=== PATIENT | female | born 1970 | race Caucasian/White ===

== ENCOUNTER 2019-06-13 13:10 | Outpatient (CLI) | payer BC ==
--- NOTE | 2019-06-13 14:43 | ULT ---
RENAL ULTRASOUND: HISTORY: History of left side urinary tract calculus with reportedly a left ureteral stent. FINDINGS: The right kidney is unremarkable. The right kidney measures 11.3 cm length. Images of the left kidney show moderate left hydronephrosis. There is free fluid around the renal pe lvis and in the perinephric space which may represent spontaneous rupture in the renal pelvis from th e hydronephrosis. The pigtail stent is not identified within the renal pelvis by ultrasound. Images of the bladder show a contracted bladder. An echogenic pigtail catheter is seen within the bl adder. IMPRESSION: 1. Moderate to severe left hydronephrosis. There is left peripelvic and perirenal fluid which may i ndicate spontaneous ruptured upper collecting structures. Echogenic stent is not identified in the l eft renal pelvis by ultrasound. 2. The bladder is contracted. There is echogenicity in the bladder lumen which does indicate a uret eral stent within the bladder. POS: [facility]
== END 2019-06-13 13:11 | disposition home or self-care (01) ==
LOC: BICULT 13:10
PROVIDERS: ATTEND Urology
DX: N13.2 Hydronephrosis with renal and ureteral calculous obstruction (principal)
CPT/HCPCS: 76770

== ENCOUNTER 2019-06-17 07:47 | Outpatient (CLI) | payer BC ==
[2019-06-17 11:15] LABS: Bilirubin Negative (Negative); Blood, Urine 1+ (Negative); Clarity Clear (Clear); Glucose, Urine (Dipstick) Normal (Negative); Leukocyte 500 Leu/uL (Negative); Nitrite Negative (Negative); Protein, Urine (Dipstick) 50 mg/dL (Neg-Trace); Squamous Epithelial 0-3 HPF (0-3); Urobilinogen Normal mg/dL (Less than 2); WBC/HPF Greater than 50 HPF (0-3)
[2019-06-17 11:22] LABS: INR-International Normal Ratio 1.2; PTT 34.1 SEC (22.9-36.1); Prothrombin Time 15.1 SEC (12.0-14.7)
[2019-06-17 11:34] LABS: Bacteria/HPF 1+ HPF (None Seen)
[2019-06-17 11:36] LABS: Anion Gap 13 mmol/L (10-20); BUN (Urea Nitrogen) 14 mg/dL (7.0-18.7); Calc. Creatinine Clearance 0 mL/min (70-130); Calcium 11.2 mg/dL (7.8-10.44); Carbon Dioxide 23 mmol/L (22-29); Chloride 103 mmol/L (98-107); Estimated GFR-MDRD 26; Glucose 88 mg/dL (70-105); Potassium 4.5 mmol/L (3.5-5.1); Sodium 134 mmol/L (136-145)
[2019-06-17 12:16] LABS: Hemoglobin 12.2 g/dL (12.0-16.0); Mean Corpuscular HGB CONC 32.4 g/dL (32.0-36.0); Mean Corpuscular Hemoglobin 28.5 pg (27.0-31.0); Mean Corpuscular Volume 87.7 fL (78.0-98.0); Mean Platelet Volume 6.1 fL (7.4-10.4); Platelet Count 1146 thou/uL (130-400); Red Blood Cell (RBC) Count 4.29 mill/uL (4.20-5.40)
[2019-06-17 12:17] LABS: MDiff Complete? YES
[2019-06-17 12:21] LABS: Band 2 % (5-11); Lymphocytes 15 % (21-51); Monocytes 4 % (0-10); Neutrophil 78 % (42-75); Rouleaux Formation SLIGHT = 1-5 cells (100X) (None Seen)
[2019-06-17 12:22] LABS: Platelet Morphology Comment Appears Increased; Polychromasia SLIGHT = 2-3 cells (100X) (0-2/hpf); Small Platelets SLIGHT
--- NOTE | 2019-06-17 15:22 | EKG ---
Test Reason : Blood Pressure : / mmHG Vent. Rate : 106 BPM Atrial Rate : 106 BPM P-R Int : 112 ms QRS Dur : 070 ms QT Int : 316 ms P-R-T Axes : 075 059 058 degrees QTc Int : 419 ms Sinus tachycardia Right atrial enlargement Borderline ECG No previous ECGs available Confirmed by MANDY PRICE ([id number]) on 06/17/2019 3:22:17 PM Referred By: LUCAS Confirmed By:MANDY PRICE
== END 2019-06-17 07:48 | disposition home or self-care (01) ==
LOC: LABBT 07:47
PROVIDERS: ATTEND Urology
DX: Z01.818 Encounter for other preprocedural examination (principal); N20.0 Calculus of kidney; N17.9 Acute kidney failure, unspecified; R65.20 Severe sepsis without septic shock
CPT/HCPCS: 80048; 81001; 85007; 85027; 85060; 85610; 85730; 87086; 93005; 93010

== ENCOUNTER 2019-06-19 07:58 | Day surgery (SDC) | payer BC ==
[2019-06-17 10:15] VITALS: BMI 26.1
[2019-06-19] MEDS ORDERED: Levofloxacin 500 mg/D5W 100 ml Premix Bag ONE (09:10)
[2019-06-19 09:19] LABS: #Basophils 0.1 thou/uL (0.0-0.2); #Eosinphils 0.2 thou/uL (0.0-0.7); #Lymphocytes 2.3 thou/uL (1.20-3.40); #Monocytes 0.8 thou/uL (0.11-0.59); #Neutrophils 12.5 thou/uL (1.40-6.50); %Basophils 0.9 % (0.0-1.0); %Eosinophils 1.1 % (0.0-10.0); %Lymphocytes 14.4 % (21.0-51.0); %Neutrophils 78.6 % (42.0-75.0); Hemoglobin 11.7 g/dL (12.0-16.0); Mean Corpuscular HGB CONC 32.2 g/dL (32.0-36.0); Mean Corpuscular Hemoglobin 27.9 pg (27.0-31.0); Mean Corpuscular Volume 86.9 fL (78.0-98.0); Mean Platelet Volume 6.3 fL (7.4-10.4); Platelet Count 988 thou/uL (130-400); RBC Distribution Width 13.1 % (11.5-14.5); Red Blood Cell (RBC) Count 4.19 mill/uL (4.20-5.40); White Blood Cell (WBC) Count 15.9 thou/uL (4.8-10.8)
[2019-06-19] MEDS ORDERED: B & O ONE (09:23)
[2019-06-19] MEDS ORDERED: Iothalamate Meglumine 60% 50 ML VIAL FS ONE (09:23)
[2019-06-19] MEDS ORDERED: Fentanyl 100 MCG/2 ML VIAL ONE (09:34)
[2019-06-19] MEDS ORDERED: Oxybutynin 5 MG TAB ONE (11:01)
[2019-06-19] MEDS ORDERED: Phenazopyridine HCl 97.5 MG TABLET ONE (11:01)
--- NOTE | 2019-06-19 11:03 | OP ---
DATE OF PROCEDURE: 06/19/2019 SERVICE: Urology. PREOPERATIVE DIAGNOSES: 1. Left ureteral stone. 2. Right nephrolithiasis. POSTOPERATIVE DIAGNOSIS: Right nephrolithiasis. PROCEDURES PERFORMED: 1. Left ureteroscopy. 2. Replacement of 6 x 24 double-J stent. 3. Left retrograde pyelogram. INDICATIONS FOR PROCEDURE: Ms. Adamson is a 48-year-old white female who initially sought at [facility] for urosepsis with a left ureteral stone. She underwent emergent ureteral stenting at that time. She has been treated with approximately 2 weeks of antibiotics since then and currently has almost just short of one week left. Her culture is currently negative and she has been stable. Her creatinine remains elevated and she did have some hydronephrosis noted on ultrasound. We elected to bring her to the operating room for diagnostic evaluation and removal of any remaining stone on the left side. Risks and benefits were discussed and she has agreed to proceed forward. DESCRIPTION OF PROCEDURE: After identification of armband and verification of consent, the patient was brought back to the operating room where she underwent general anesthesia with an LMA. She was then placed in dorsal lithotomy position and prepped and draped in the usual sterile fashion. After appropriate time-out, a lubricated 22-Ghanaian rigid cystoscope was introduced per urethra into the bladder. Attention was turned to the left ureteral orifice. There was a stent emanating. There was minimal amounts of erythema surrounding the stent. Flexible grasper was used to grasp the stent and bring it up to the level of the urethral meatus. A 0.035 Sensor wire was advanced through the ureteral stent up to the level of renal pelvis and the stent removed and discarded. A dual-lumen catheter was then advanced over the Sensor wire up to the level of the distal ureter and a retrograde pyelogram was performed through the second lumen. This demonstrated a normal caliber ureter with no filling defects other than some gas bubbles and a normal collecting system without hydronephrosis or dilation with sharp cupped calyces. There were some air bubbles there as well, but no obvious filling defects consistent with stone disease. The dual-lumen was removed and the Sensor wire was affixed to the drapes as a safety wire. A semi-rigid ureteroscope was then brought alongside the Sensor wire into the distal ureter. Ureteroscopy was performed and no stone was encountered. However, within the distal ureter, it was noticed that the wire was tunneled through the submucosa, likely the same direction the stent had gone. As such, we navigated past this portion with ureteroscope and all the way up to the proximal ureter, where no stone was encountered. The wire was removed and replaced through the ureteroscope to ensure that was within the lumen of the ureter. Pull-back ureteroscopy was employed and no additional stones were seen. On the retrograde, there were no other stones noted, and on preoperative CT from [facility], the patient has no other known stones on the left other than the nephrolithiasis, which is on the right side. Given that she is still being treated for sepsis, I did not feel it was the ideal time to perform bilateral ureteroscopy at this time and felt that a shorter procedure was best. We can always deal with the stones on the right side another date if she desires. Otherwise, we will probably just leave them alone if she wishes to try to pass them on her own. As such, the ureteroscope was withdrawn and removed. The ureteral stent was advanced over the Sensor wire,and using fluoroscopic guidance, put into positioning and then the wire removed. This resulted in a good curl in the kidney and a good curl in the bladder. The bladder was then emptied and the cystoscope removed. Final fluoroscopy demonstrated there was a minimal amount of contrast within the kidney. The patient was then taken out of positioning, awakened, taken to PACU for recovery in stable condition. COMPLICATIONS: None. ESTIMATED BLOOD LOSS: Minimal. RETAINED TUBES AND DRAINS: A 6 x 24 double-J stent on the left. SPECIMENS: None. DISPOSITION: The patient will be discharged home and follow up with me in approximately 1 week for cystoscopy and stent removal. After that time, we will discuss treatment of the right side versus leaving the right side and just working with stone metabolic workup. Job ID: [id number]
[2019-06-19] MEDS ORDERED: Lidocaine 1% PF 5 ML VIAL ONE (11:22)
[2019-06-19] MEDS ORDERED: EPHEDRINE 25 MG/5 ML SYRINGE ONE (11:22)
[2019-06-19] MEDS ORDERED: PHENYLEPHRINE-NS 100 MCG/ML 10 ML SYRINGE ONE (11:22)
[2019-06-19] MEDS ORDERED: Ondansetron PF 4 MG/2 ML Vial ONE (11:22)
[2019-06-19] MEDS ORDERED: PROPOFOL 200 MG/20 ML VIAL ONE (11:22)
--- NOTE | 2019-06-19 11:58 | RAD ---
RETROGRADE PYELOGRAM: Date: 06/19/2019 HISTORY: Stent placement. FINDINGS: Two images presented for interpretation show placement of a left ureteral stent which appears to be i n fairly good position. IMPRESSION: Placement of a left ureteral stent. POS: [facility]
== END 2019-06-19 13:20 | disposition home or self-care (01) ==
LOC: SDC 07:58
PROVIDERS: ATTEND Urology
PROC: 0T778DZ Dilation of Left Ureter with Intraluminal Device, Via Natural or Artificial Opening Endoscopic (ICD-10-PCS; principal; 2019-06-19)
DX: N13.2 Hydronephrosis with renal and ureteral calculous obstruction (principal); N17.9 Acute kidney failure, unspecified; R65.20 Severe sepsis without septic shock; Z79.899 Other long term (current) drug therapy; Z88.8 Allergy status to other drugs, medicaments and biological substances; Z91.048 Other nonmedicinal substance allergy status
CPT/HCPCS: 36415; 74420; 85025; C1769; J1956; J2001; J2405; J2704; J3010

== ENCOUNTER 2019-07-04 15:30 | Outpatient (CLI) | payer BC ==
--- NOTE | 2019-07-04 17:23 | ULT ---
BILATERAL RENAL ULTRASOUND: 07/04/19 HISTORY: Follow-up abscess. FINDINGS: The right kidney measures 9.6 cm in length and the left kidney measures 10.9 cm in length. There is a 7 x 5.4 x 4.6 cm complex mass in the upper left kidney which may represent residual abscess. The pat ient has a left sided drain. The urinary bladder is incompletely distended with a volume of 29 mL. Incidental note is made of a 2. 2 x 1.8 x 1.5 cm cyst in the right lobe of the liver. IMPRESSION: 1. Probable residual abscess in the left kidney. Evaluation with contrast enhanced CT scan would be helpful. 2. Right renal cyst. POS: [facility]
== END 2019-07-04 15:31 | disposition home or self-care (01) ==
LOC: BICULT 15:30
PROVIDERS: ATTEND Urology
DX: N15.1 Renal and perinephric abscess (principal); N28.1 Cyst of kidney, acquired
CPT/HCPCS: 76770

== ENCOUNTER 2019-07-10 11:52 | Inpatient (IN) | payer BC ==
[2019-07-10] MEDS ORDERED: Heparin 1,000 UNITS/ML VIAL ONE (13:07)
[2019-07-10 13:08] LABS: #Basophils 0.1 thou/uL (0.0-0.2); #Eosinphils 0.1 thou/uL (0.0-0.7); #Lymphocytes 2.3 thou/uL (1.20-3.40); #Monocytes 0.9 thou/uL (0.11-0.59); #Neutrophils 15.9 thou/uL (1.40-6.50); %Basophils 0.4 % (0.0-1.0); %Eosinophils 0.6 % (0.0-10.0); %Lymphocytes 12.1 % (21.0-51.0); %Monocytes 4.5 % (0.0-10.0); %Neutrophils 82.4 % (42.0-75.0); Hemoglobin 11.1 g/dL (12.0-16.0); Mean Corpuscular HGB CONC 34.5 g/dL (32.0-36.0); Mean Corpuscular Hemoglobin 28.4 pg (27.0-31.0); Mean Corpuscular Volume 82.5 fL (78.0-98.0); Mean Platelet Volume 7.1 fL (7.4-10.4); Platelet Count 517 thou/uL (130-400); RBC Distribution Width 13.4 % (11.5-14.5); Red Blood Cell (RBC) Count 3.91 mill/uL (4.20-5.40); White Blood Cell (WBC) Count 19.3 thou/uL (4.8-10.8)
[2019-07-10 13:33] LABS: ALT (SGPT) 7 U/L (8-55); AST (SGOT) 14 U/L (5-34); Albumin 3.9 g/dL (3.5-5.0); Alkaline Phosphatase 155 U/L (40-110); Anion Gap 15 mmol/L (10-20); BUN (Urea Nitrogen) 24 mg/dL (7.0-18.7); Bilirubin, Total 0.4 mg/dL (0.2-1.2); Calc. Creatinine Clearance 0 mL/min (70-130); Calcium 11.6 mg/dL (7.8-10.44); Carbon Dioxide 22 mmol/L (22-29); Chloride 100 mmol/L (98-107); Estimated GFR-MDRD 20; Globulin 5.2 g/dL (2.4-3.5); Glucose 89 mg/dL (70-105); Lipase 55 U/L (8-78); Potassium 4.7 mmol/L (3.5-5.1); Protein, Total 9.1 g/dL (6.0-8.3); Sodium 132 mmol/L (136-145)
[2019-07-10] MEDS ORDERED: Cefepime 2 GM VIAL ONE (14:40)
[2019-07-10 14:42] LABS: Bilirubin Negative (Negative); Blood, Urine Negative (Negative); Clarity Clear (Clear); Glucose, Urine (Dipstick) Normal (Negative); Leukocyte 250 Leu/uL (Negative); Nitrite Negative (Negative); Protein, Urine (Dipstick) Negative (Neg-Trace); RBC/HPF 0-3 HPF (0-3); Squamous Epithelial 0-3 HPF (0-3); Urobilinogen Normal mg/dL (Less than 2)
[2019-07-10 14:44] LABS: Bacteria/HPF 1+ HPF (None Seen)
--- NOTE | 2019-07-10 14:46 | ULT ---
US Renal Bilateral STANDARD History: Left flank pain Comparison: Renal ultrasound June 2019 Findings: The right kidney measures 10.5 x 4.3 x 6.1 cm and the left kidney measures 10 x 5.8 x 6.4 c m. Prevoid urinary bladder volume is 107 mL. Appears be intraparenchymal abscess of the left kidney superior pole measuring up to 7.8 cm in size. Impression: Findings concerning for intraparenchymal abscess of the left kidney which has not improve d from the comparison examination and appears to contain gas. Again, CT examination may be beneficial unless performed elsewhere.
[2019-07-10] MEDS ORDERED: metroNIDAZOLE 500 MG/100 ML BAG ONE (15:23)
[2019-07-10] MEDS ORDERED: Vancomycin 1 GM/200 ML BAG ONE (16:44)
[2019-07-10] MEDS ORDERED: Acetaminophen 650 MG Suppository PR PRN (22:13)
--- NOTE | 2019-07-10 22:57 | RAD ---
XR Chest Pa Lat STANDARD HISTORY: Shortness of breath and cough. COMPARISON: None. FINDINGS: Heart size and mediastinum are within normal limits. The lungs are clear of infiltrates. No significant bony findings. Left-sided nephrostomy is noted. IMPRESSION: No active intrathoracic disease.
[2019-07-10] MEDS: metroNIDAZOLE 500 MG in Premix Bag 1 BAG IVPB SCH (22:58)
[2019-07-10] MEDS: Benzonatate 100 MG CAP PO PRN (22:58)
--- NOTE | 2019-07-10 23:34 | CON ---
DATE OF CONSULTATION: 07/10/2019 CONSULTING: Emergency Room. EDUCATION SALES CONSULTANT: Dr. Martinez. REASON FOR CONSULTATION: Fevers and renal abscess. HISTORY OF PRESENT ILLNESS: Ms. Adamson is a 48-year-old white female, who is known to me for issues regarding a renal abscess. Her history is somewhat complicated, but she initially presented to me on June 27 at [facility], where she was found to have urosepsis secondary to an obstructing ureteral stone. She underwent emergent stenting at that time. She ended up passing the stone, which was not known at the time of taking her for ureteroscopy. Her urine culture was negative at that time and we did proceed with ureteroscopy and no stone was encountered. The stent was subsequently removed and the patient was discharged home. She subsequently came back with fevers and was found to have a renal abscess the following weekend. She had a percutaneous drain placed at [facility] and was discharged home on antibiotics. We were planning to remove the drain in the office, but repeat renal ultrasound demonstrated a 7 cm renal abscess still present despite the percutaneous drainage. As such, we elected to continue antibiotic therapy and continue the drain. The patient reported the percutaneous drainage was not draining well, so she came into the office, where we flushed the drain with approximately 5 to 10 mL of gentamicin irrigation. She did well with this and was sent home. Approximately 2 to 3 days later, the patient presented to the emergency room, which is this admission, where she was complaining of severe intractable left flank pain with continued poor drainage output from her percutaneous drain. Her labs demonstrated an elevated white count up to 19,300 and she stated that she is still feeling ill with severe pain, nausea, and subjective fevers and chills. A renal ultrasound was done while in the ER, which demonstrates persistence of the large renal abscess. I have been consulted for further assistance. On my discussion with the patient again, she states the above symptoms, which were endorsed by the patient. She denies any chest pain or shortness of breath. She is not vomiting, but has been nauseated. She denies any lower extremity swelling. She continues to urinate. She denies any hematuria or dysuria. ALLERGIES: 1. ADHESIVE TAPE. 2. TERFENADINE. 3. BACITRACIN OINTMENT. 4. LISINOPRIL. 5. NEOMYCIN. 6. POLYMYXIN. HOME MEDICATIONS: 1. Amlodipine 5 mg p.o. daily. 2. Wellbutrin 150 mg twice a day. 3. Vitamin D 5000 units daily. 4. Synthroid 125 mcg p.o. daily. 5. Cytomel 5 mcg p.o. daily. 6. Klor-Con 20 mEq p.o. daily. 7. Biotin 2 mg p.o. daily. 8. Valium 10 mg p.o. q.8 hours p.r.n. anxiety. 9. Lunesta 2 mg p.o. at bedtime p.r.n. insomnia. 10. Lasix 40 mg p.o. daily p.r.n. leg swelling. 11. Losartan 100 mg p.o. daily. 12. Phenergan 25 mg p.o. q.6 hours p.r.n. nausea. 13. Senokot/docusate 2 tablets p.o. daily p.r.n. constipation. 14. Spironolactone 50 mg p.o. b.i.d. 15. Advair Diskus one puff b.i.d. 16. Kerydin 5% ointment topically daily. PAST MEDICAL HISTORY: 1. Hypertension. 2. Anemia. 3. Allergies. 4. Urosepsis. 5. Nephrolithiasis. 6. Endometriosis. 7. Lower extremity edema. 8. Chronic kidney disease, stage 3. 9. Hyperlipidemia. 10. Irritable bowel syndrome. 11. Insomnia. 12. Female infertility. 13. Hypothyroidism. 14. Hypokalemia. 15. Rosacea. 16. Gastroesophageal reflux disease. 17. Chronic pelvic pain. PAST SURGICAL HISTORY: 1. Pelvic laparoscopy. 2. EGD. 3. Ureteroscopy and ureteral stent placement. 4. Colonoscopy. 5. Varicose vein surgery. FAMILY HISTORY: Significant for lung cancers, Alzheimer's disease, ALS, and Crohn's disease. SOCIAL HISTORY: The patient is and works at [employer]. She denies smoking. Drinks alcohol only socially and denies any illicit drugs. REVIEW OF SYSTEMS: A 12-point review of systems reviewed and negative other that what was commented on the HPI. PHYSICAL EXAMINATION: VITAL SIGNS: Temperature 99.3, heart rate 104, blood pressure 114/73, respirations 16, and saturation 98% on room air. GENERAL: No apparent distress. Communicating and alert. Does not appear to be currently in pain, although she did receive pain medication. Well nourished, well developed, answering questions appropriately. HEENT: Normocephalic and atraumatic. Pupils are symmetric and round. Trachea midline. Moist mucous membranes. Extraocular movements intact. CARDIOVASCULAR: Sinus tachycardia. Regular rhythm. Normal S1 and S2. Symmetric pulses. Scattered varicosities in the lower extremities. CHEST: No increased work of breathing. Symmetric expansion of lungs, clear anteriorly. ABDOMEN: Soft and nondistended. Tenderness to palpation on the left abdomen. No suprapubic tenderness. There is a left percutaneous drain coming out of her back, which has purulent material and tubing and only scant amount of fluid in the drainage container. : Deferred at this time. EXTREMITIES: 1+ edema bilaterally. SKIN: Warm and dry. No rashes or lesions. Good turgor. MUSCULOSKELETAL: No joint deformities or joint erythema noted. Full range of motion. NEUROLOGIC: Cranial nerves 2 through 12 grossly intact. No focal or sensory motor deficits identified. PSYCHIATRIC: Alert and orient x3. Appropriate mood and affect. LABORATORY EVALUATION: Full set of labs are in the [facility] system, which I have reviewed. Of note, the patient's white count is 19.3 with a hemoglobin of 11.1. Creatinine is currently 2.49, sodium of 132. UA demonstrates 250 leukocyte esterase, 11 to 20 wbc's, no blood, 1+ bacteria. Cultures are currently pending. Ultrasound report of the kidneys today demonstrates persistence of a large left renal abscess measuring 7 cm, which is largely unchanged. ASSESSMENT AND PLAN: A 48-year-old white female with a large left renal abscess status post percutaneous drainage with persistence of the abscess. There is a high likelihood the patient has loculations within the abscess cavity, which is preventing proper drainage. The patient will probably require additional percutaneous drains to try and drain the abscess cavity completely along with IV antibiotics. I would no longer recommend oral antibiotic therapy in this individual as she has already failed outpatient antibiotic therapy. If she continues to have failure of her drainage, she may require open surgical drainage and washout of the kidney, although this would be a last resort. I would recommend consulting Infectious Disease for further assistance in management of her complex infection and recommend that she get a percutaneous drain replaced tomorrow with possible additional drains placed to try and drain as much of the abscess cavity as possible. I will continue to follow along, but at this time, I would not recommend surgical intervention unless percutaneous drainage and IV antibiotic therapy fail. Job ID: [id number]
--- NOTE | 2019-07-10 23:55 | PDOC.HHP ---
Hospitalist HPI - History of Present Illness Back pain History of Present Illness: Patient presenting with increasing left flank pain. She has a known history of left renal abscess for which she has been on antibiotics. She was advised by Dr. Martinez to come in to the ED. She has a drain in place to the left kidney. States she has been on antibiotics, most recently Levaquin. Pocola she needed something stronger due to increasing pain. She has been using tylenol as well as a heating pad but no significant relief. She has history of kidney stones and had a stent placed which was later removed towards the end of May. She states the drain was placed at [facility] where she had CT imaging and an ultrasound. Denies having any fevers but has felt somewhat warm at times. No chills. Reports having a dry cough, which she states exacerbates her pain, otherwise her pain remains at a 3/10 in severity. ED Course: Renal US: Findings concerning for intraparenchymal abscess of the left kidney which has not improve d from the comparison examination and appears to contain gas. Again, CT examination may be beneficial unless performed elsewhere. Hospitalist ROS - Review of Systems Constitutional: reports: malaise. denies: fever, chills, sweats, weakness, other Eyes: denies: pain, vision change, conjunctivae inflammation, eyelid inflammation, redness, other ENT: denies: ear pain, ear discharge, nose pain, nose discharge, nose congestion , mouth pain, mouth swelling, throat pain, throat swelling, other Respiratory: reports: cough, dry. denies: shortness of breath, hemoptysis, SOB with excertion, pleuritic pain, sputum, wheezing, other Cardiovascular: denies: chest pain, palpitations, orthopnea, paroxysmal noc. dyspnea, edema, light headedness, other Gastrointestinal: reports: other (left flank pain). denies: nausea, vomiting, diarrhea, constipation, melena, hematochezia Genitourinary: denies: dysuria, frequency, incontinence, hematuria, retention, other Musculoskeletal: denies: neck pain, shoulder pain, arm pain, back pain, hand pain, leg pain, foot pain, other Skin: denies: rash, lesions, lora, bruising, other Neurological: denies: weakness, numbness, incoordination, change in speech, confusion, seizures, other - Medication Medications: Active Medications Generic Name Dose Route Start Last Admin Trade Name Freq PRN Reason Stop Dose Admin Benzonatate 100 mg 07/10/19 22:15 07/10/19 22:58 Tessalon PO 100 mg TIDPRN PRN Administration Cough Metronidazole 500 mg/ Device 100 mls @ 100 mls/hr 07/10/19 22:00 07/10/19 22: 58 IVPB 100 mls Q8HR KASSI Administration Hospitalist History - Past Medical History Cardiac: reports: HTN, Hyperlipidemia Gastrointestinal: reports: GERD, Irritable bowel disease Heme/Onc: reports: Anemia NOS Renal/: reports: Chronic renal insuff, Other (urosepsis, nephrolithiasis) Endocrine: reports: Hypothyroidism - Past Surgical History Past Surgical History: reports: Other (Ureteroscopy, EGD, Colonoscopy, Varicose vein surgery) - Family History Family History: reports: cancer (lung cancer, alzheimer's Crohn's) - Social History Smoking Status: Never smoker Alcohol: reports: None Drugs: reports: none Living Situation: With Family Activity level: independent ambulation - Exam General Appearance: NAD, awake alert Eye: PERRL, anicteric sclera ENT: normocephalic atraumatic, no oropharyngeal lesions, moist mucosa Neck: supple, symmetric Heart: RRR Respiratory: CTAB, no wheezes, no rales, no ronchi, normal chest expansion, no tachypnea Respiratory - other findings: deep breaths exacerbate cough Gastrointestinal: soft, non-tender, non-distended, normal bowel sounds Gastrointestinal - other findings: left flank notable for drain, no surrounding erythema or swelling Extremities: no cyanosis Skin: normal turgor, no lesions, no rashes Neurological: cranial nerve grossly intact, normal sensation to touch, no weakness Musculoskeletal: normal tone, normal strength, no muscle wasting Psychiatric: normal affect, normal behavior, A&O x 3 Hospitalist Results - Labs Result Diagrams: 07/10/19 12:30 07/10/19 12:30 Lab results: WBC 19.3 thou/uL (4.8-10.8) H 07/10/19 12:30 Hgb 11.1 g/dL (12.0-16.0) L 07/10/19 12:30 Hct 32.2 % (36.0-47.0) L 07/10/19 12:30 MCV 82.5 fL (78.0-98.0) 07/10/19 12:30 Plt Count 517 thou/uL (130-400) H 07/10/19 12:30 Neutrophils % 82.4 % (42.0-75.0) H 07/10/19 12:30 Sodium 132 mmol/L (136-145) L 07/10/19 12:30 Potassium 4.7 mmol/L (3.5-5.1) 07/10/19 12:30 Chloride 100 mmol/L (98-107) 07/10/19 12:30 Carbon Dioxide 22 mmol/L (22-29) 07/10/19 12:30 BUN 24 mg/dL (7.0-18.7) H 07/10/19 12:30 Creatinine 2.49 mg/dL (0.6-1.1) H 07/10/19 12:30 Glucose 89 mg/dL (70-105) 07/10/19 12:30 Lactic Acid 1.3 mmol/L (0.5-2.2) 07/10/19 12:46 Calcium 11.6 mg/dL (7.8-10.44) H 07/10/19 12:30 Total Bilirubin 0.4 mg/dL (0.2-1.2) 07/10/19 12:30 AST 14 U/L (5-34) 07/10/19 12:30 ALT 7 U/L (8-55) L 07/10/19 12:30 Alkaline Phosphatase 155 U/L (40-110) H 07/10/19 12:30 B-Natriuretic Peptide 24.1 pg/mL (0-100) 07/10/19 19:30 Serum Total Protein 9.1 g/dL (6.0-8.3) H 07/10/19 12:30 Albumin 3.9 g/dL (3.5-5.0) 07/10/19 12:30 Lipase 55 U/L (8-78) 07/10/19 12:30 Urine Ketones Negative mg/dL (Negative) 07/10/19 14:13 Urine Blood Negative (Negative) 07/10/19 14:13 Urine Nitrite Negative (Negative) 07/10/19 14:13 Ur Leukocyte Esterase 250 Dino/uL (Negative) A 07/10/19 14:13 Urine RBC 0-3 HPF (0-3) 07/10/19 14:13 Urine WBC 11-20 HPF (0-3) A 07/10/19 14:13 Ur Squamous Epith Cells 0-3 HPF (0-3) 07/10/19 14:13 Urine Bacteria 1+ HPF (None Seen) A 07/10/19 14:13 Hospitalist H&P A/P - Problem (1) Acute left flank pain Code(s): R10.9 - UNSPECIFIED ABDOMINAL PAIN Status: Acute (2) Renal abscess, left Code(s): N15.1 - RENAL AND PERINEPHRIC ABSCESS Status: Acute (3) Hypertension Code(s): I10 - ESSENTIAL (PRIMARY) HYPERTENSION Status: Chronic (4) Nephrolithiasis Status: Chronic (5) Hyperlipidemia Code(s): E78.5 - HYPERLIPIDEMIA, UNSPECIFIED Status: Chronic (6) Hypothyroidism Code(s): E03.9 - HYPOTHYROIDISM, UNSPECIFIED Status: Chronic (7) GERD (gastroesophageal reflux disease) Code(s): K21.9 - GASTRO-ESOPHAGEAL REFLUX DISEASE WITHOUT ESOPHAGITIS Status: Chronic - Plan Plan: Consult Dr. Martinez Continue IV Abx Obtain baseline CXR Kendra riojas for cough Monitor BP Reconcile home meds once verified Day team to decide if ID consult needed. NPO at midnight. Coags with AM labs. Monitor renal function. CODE STATUS: FULL Surrogate decision maker: her Juan Adamson.
[2019-07-11] MEDS ORDERED: Cepastat Lozenges 1 LOZ PO PRN (00:25)
[2019-07-11 00:44] VITALS: BMI 22.1
[2019-07-11] MEDS: metroNIDAZOLE 500 MG in Premix Bag 1 BAG IVPB SCH (05:50)
[2019-07-11] MEDS: Levothyroxine Sodium 125 MCG TAB PO SCH (05:50)
[2019-07-11 05:59] LABS: #Basophils 0.1 thou/uL (0.0-0.2); #Eosinphils 0.2 thou/uL (0.0-0.7); #Lymphocytes 1.9 thou/uL (1.20-3.40); #Monocytes 0.6 thou/uL (0.11-0.59); #Neutrophils 9.4 thou/uL (1.40-6.50); %Basophils 0.4 % (0.0-1.0); %Eosinophils 1.6 % (0.0-10.0); %Lymphocytes 15.7 % (21.0-51.0); %Monocytes 4.8 % (0.0-10.0); %Neutrophils 77.4 % (42.0-75.0); Mean Corpuscular HGB CONC 33.3 g/dL (32.0-36.0); Mean Corpuscular Hemoglobin 27.8 pg (27.0-31.0); Mean Corpuscular Volume 83.5 fL (78.0-98.0); Mean Platelet Volume 6.5 fL (7.4-10.4); Platelet Count 502 thou/uL (130-400); RBC Distribution Width 13.4 % (11.5-14.5); Red Blood Cell (RBC) Count 3.59 mill/uL (4.20-5.40); White Blood Cell (WBC) Count 12.1 thou/uL (4.8-10.8)
[2019-07-11 06:20] LABS: Anion Gap 13 mmol/L (10-20); BUN (Urea Nitrogen) 21 mg/dL (7.0-18.7); Calc. Creatinine Clearance 36 mL/min (70-130); Calcium 10.9 mg/dL (7.8-10.44); Carbon Dioxide 20 mmol/L (22-29); Chloride 106 mmol/L (98-107); Estimated GFR-MDRD 26; Glucose 90 mg/dL (70-105); Potassium 4.4 mmol/L (3.5-5.1); Sodium 135 mmol/L (136-145)
[2019-07-11] MEDS ORDERED: Furosemide 40 MG TAB PO SCH (09:00)
[2019-07-11] MEDS: Acetaminophen 325 MG TAB PO PRN (09:09)
[2019-07-11] MEDS: Liothyronine Sodium 5 MCG TAB PO SCH ×2 (09:10→21:42)
[2019-07-11] MEDS: Benzonatate 100 MG CAP PO PRN (09:11)
[2019-07-11] MEDS ORDERED: Sodium Bicarbonate 2.5 MEQ/5 ML VIAL ONE (13:01)
[2019-07-11] MEDS ORDERED: Fentanyl 100 MCG/2 ML VIAL ONE (13:01)
[2019-07-11] MEDS ORDERED: Midazolam HCl 2 mg/2 ml Vial ONE (13:01)
[2019-07-11] MEDS ORDERED: Cefepime 2 GM in Sodium Chloride 0.9% 100 ML IVPB SCH (15:00)
--- NOTE | 2019-07-11 15:08 | CT ---
CT-guided left renal abscess catheter exchange CT abdomen noncontrast Conscious sedation: At least 40 minutes spent with the patient for conscious sedation. HISTORY: Left renal abscess. Poor function of drainage catheter. After swelling the procedure and answering all questions, Noncontrast CT abdomen performed to evaluat e for location of the drain. The lung bases are clear. There is a 0.2 cm calculus within a nondilated calyx at the inferior pole of the right kidney. Each renal collecting system is decompress ed. Lack of contrast limits evaluation of the soft tissues. Multiple cystic lesions throughout the liver. The largest include a 2.1 cm cyst within the posterior segment right liver lobe and a 0.8 cm c yst within the lateral segment left liver lobe. No evidence of bowel obstruction. A left posterior percutaneous nephrostomy catheter is coiled within a fluid collection at the posteri or inferior aspect of the left kidney. It appears to be well positioned within a fluid collection that, based on the noncontrast images, it is estimated at 5.3 cm x 4.7 cm greatest diameters. There i s stranding around the left kidney. The pelvis was not imaged. With patient prone, attempt was made to aspirate material from the drain. Only a small amount of very thick purulent material was able to be aspirated. Approximately 12 cc of a dilute contrast liquid was then carefully instilled into the drain. The contrast infiltrated throughout the mostly decompres sed abscess cavity. Some very thick material was partially aspirated. Most of the contrast would not aspirate due to the thickness of the material and clogging of the facets of the catheter. Decision was made to upsize the catheter. The left flank and external portion of the drain was carefully prepped and draped in usual sterile fa shion. Sterile technique was then used to place a 0.035 Amplatz wire to hold position. The tract was serially dilated to 12 Singaporean, and a 12 Singaporean locking loop nephrostomy catheter was carefully pl aced into the abscess cavity. Prior to placement, additional side holes were cut into the distal portion of the catheter to facilitate drainage of the thicker material. The catheter was secured inte rnally and externally with 0 silk suture and left draining to gravity. Patient tolerated the procedure well and was eventually returned in unchanged condition. IMPRESSION: Technically successful upsizing of the percutaneous drain of the left renal abscess. Due to the thickness of the material, additional side holes were cut in the peripheral portion of the 12 Singaporean catheter. The previously placed catheter was in good position, and the initial appearance was that of fluid rem aining around the catheter coiled. With aspiration and injection of contrast, however, it appears that the residual material within the abscess cavity is extremely thoracic, unable to pass through th e Singaporean catheter. Nonobstructing 2 mm right renal calculus.
--- NOTE | 2019-07-11 15:12 | SPC ---
Sonographic guided left upper extremity PICC placement HISTORY: Renal abscess. FINDINGS: After explaining the procedure and answering all questions, left upper extremity was preppe d and draped in usual sterile fashion. Sterile technique, buffered local anesthesia, sonographic guidance, and a 22-gauge needle were used to carefully access the left basilic vein. Standard technOpax ue was used to place the tip of a 5 Malagasy single lumen PICC so that the tip lies at the level of the right atrium. Catheter was flushed and secured externally. Patient tolerated the procedure well a nd was returned in unchanged condition. Fluoroscopy time 0 seconds. IMPRESSION: Left upper extremity PICC is ready for use.
[2019-07-11] MEDS: Lorazepam 0.5 MG TAB PO PRN ×2 (15:22→21:42)
[2019-07-11] MEDS: cefTRIAXone\\ROCEPHIN 2 GM in Sodium Chloride 0.9% 100 ML IVPB SCH (15:22)
[2019-07-11] MEDS ORDERED: Morphine 2 MG/ML SYRINGE SLOW IVP PRN (15:25)
[2019-07-11] MEDS ORDERED: traMADol HCl 50 MG TAB PO PRN (15:25)
[2019-07-11] MEDS ORDERED: Acetaminophen/Codeine 30-300mg Tablet PO PRN (15:26)
[2019-07-11] MEDS ORDERED: Vancomycin HCl 750 MG in Sodium Chloride 0.9% 250 ML 250 ML IVPB SCH (16:00)
--- NOTE | 2019-07-11 16:29 | CON ---
DATE OF CONSULTATION: 07/11/2019 REASON FOR CONSULTATION: Renal abscess. HISTORY OF PRESENT ILLNESS: A 48-year-old who has a history of hypertension and was admitted to [facility] at the end of May with a left-sided flank pain and fever with obstructing nephrolithiasis. The patient was managed with stent placement. She had quite sensitive E coli retrieved from the urine, and I believe, she was treated with cefdinir and she returned to the hospital with worsening pain and this time had the stent removed and there was an abscess in the left kidney, this was drained percutaneously. She was discharged again on cefdinir and she was readmitted to this hospital this time and she had a renal ultrasound, which demonstrated intraparenchymal abscess in the left kidney, which did not appear improved and still contained a gas. She still has a percutaneous drainage tube and is draining a purulent exudate, seems like for a while it was not draining, but now has resumed draining. Reportedly, the patient does flush off the tube on a daily basis at home. Some headaches. No visual symptoms. No respiratory symptoms. Some abdominal pain, particularly on the left side. She does urinate without difficulty. No joint symptoms. No neurological symptoms. MEDICAL HISTORY: 1. Hypertension. 2. Recently described left kidney complications, which required stent placement and removal and percutaneous aspirate of abscess at [facility] in [place]. 3. History of depression. SOCIAL HISTORY: Never smoker. No alcoholic beverage use. ALLERGIES: BACITRACIN, LISINOPRIL, NEOMYCIN, POLYMYXIN, AND TERFENADINE. FAMILY HISTORY: Noncontributory. CURRENT MEDICATIONS: She had been on: 1. Cefepime. 2. Vancomycin. 3. Flagyl. 4. Levothyroxine. 5. Furosemide. 6. Cepastat. 7. She is being switched to ceftriaxone. PHYSICAL EXAMINATION: VITAL SIGNS: The patient has been afebrile since admission, pulse 94, respirations 17, O2 saturation 100, and BP 120/75. SKIN: Normal except for the percutaneous drainage tube in the left flank with purulent exudate drained into the receptacle. The patient has a peripheral IV access. No Aragon catheter. No lymphadenopathy. HEENT: Ocular movements conjugate. Oral cavity normal. NECK: Supple. LUNGS: Symmetric with clear breath sounds. HEART: S1 and S2. Regular rate. No S3 or S4. ABDOMEN: Soft with moer-vy-pxrogfez tenderness in the left flank area. No ascites. No organomegaly. No bladder distention. EXTREMITIES: No joint inflammatory activity. Pulses 1+ in dorsalis pedis. Trace edema in lower extremities. Moves all extremities equally. NEUROLOGIC: Cognitive function appears to be intact. LABORATORY DATA: White cell count 19.3 and now is 12.1, hemoglobin 10, and platelets 502 with 82% neutrophils and 12% lymphocytes. Sodium 132 and 135, creatinine baseline was 2.03 and now is back to baseline 2.03. AST 14, ALT 7, alkaline phosphatase 155, total protein 9.1, and albumin 3.9. Urinalysis with 11 to 20 wbc's. The cultures were reviewed from [facility] and both from the abscess as well as the urine sample, yielded pansensitive strain of E coli except for ampicillin. ASSESSMENT AND DISCUSSION: 1. Hypertension. 2. Nephrolithiasis with obstructive features, left side, requiring stent placement, which was removed. Subsequently, a left kidney abscess was identified. This was drained percutaneously at [facility] in [place]. The patient had a quite susceptible strain of Escherichia coli, but she was discharged on cefdinir, and cefdinir has poor penetration in the renal tissue and is not a preferred agent for treatment of kidney infections and that probably explains the persistence of the infectious process. The patient continues with drainage tube and this will need to be followed up with repeat imaging studies to determine the timing for the removal. At same time, we will place a PICC line and switch her to Rocephin for a protracted period of time, and the endpoint will be resolution of inflammatory markers, pain and improvement if not resolution of the abscess in the left kidney. Job ID: [id number]
--- NOTE | 2019-07-11 19:25 | PDOC.HOSPP ---
- Subjective Encounter Date: 07/11/19 Encounter Time: 15:30 Subjective: Patient seen and examined for Left renal abscess. Pain controlled. s/p PICC line. No new complaints. No overnight events - Objective Vital Signs & Weight: Vital Signs (12 hours) Temp Pulse Resp BP Pulse Ox 07/11/19 15:12 97.8 F 103 H 18 123/79 99 07/11/19 11:19 97.8 F 94 17 119/75 100 07/11/19 09:54 96 07/11/19 07:42 97.8 F 92 17 121/82 96 Weight Weight 150 lb I&O: 07/10/19 07/11/19 07/12/19 06:59 06:59 06:59 Intake Total 720 Balance 720 Result Diagrams: 07/11/19 05:43 07/11/19 05:43 Additional Labs: Microbiology 07/10/19 14:37 Venous blood - Right Arm Blood Culture - Preliminary Specimen has been received and culture in progress. No Growth to date. 07/10/19 14:37 Venous blood - Right Arm Blood Culture - Preliminary Specimen has been received and culture in progress. No Growth to date. 07/10/19 14:13 Urine clean catch Urine Culture - Preliminary NO GROWTH AT 24 HOURS Radiology Reviewed by me: Yes (CXR - neg) Hospitalist ROS - Review of Systems Respiratory: denies: cough, dry, shortness of breath, hemoptysis, SOB with excertion, pleuritic pain, sputum, wheezing, other Cardiovascular: denies: chest pain, palpitations, orthopnea, paroxysmal noc. dyspnea, edema, light headedness, other Gastrointestinal: denies: nausea, vomiting, abdominal pain, diarrhea, constipation, melena, hematochezia, other - Medication Medications: Active Medications Generic Name Dose Route Start Last Admin Trade Name Freq PRN Reason Stop Dose Admin Acetaminophen 650 mg 07/10/19 22:13 07/11/19 09:09 Tylenol PO 650 mg Q4H PRN Administration Headache/Fever/Mild Pain (1-3) Benzonatate 100 mg 07/10/19 22:15 07/11/19 09:11 Tessalon PO 100 mg TIDPRN PRN Administration Cough Ceftriaxone Sodium 2 gm/ 100 mls @ 200 mls/hr 07/11/19 13:00 03/13/20 15:22 Sodium Chloride IVPB 100 mls Q24HR KASSI Administration Levothyroxine Sodium 125 mcg 07/11/19 06:00 07/11/19 05:50 Synthroid PO 125 mcg 0600 KASSI Administration Liothyronine Sodium 10 mcg 07/11/19 09:00 07/11/19 09:10 Cytomel PO Not Given BID KASSI Lorazepam 0.5 mg 07/11/19 15:02 07/11/19 15:22 Ativan PO 0.5 mg Q4H PRN Administration Anxiety Morphine Sulfate 2 mg 07/11/19 15:25 07/11/19 15:33 Morphine SLOW IVP 07/12/19 15:26 2 mg Q6H PRN Administration Pain Sodium Chloride 10 ml 07/10/19 22:13 07/11/19 15:34 Flush - Normal Saline IVF 10 ml PRN PRN Administration Saline Flush Throat Lozenges 1 jordyn 07/11/19 00:25 07/11/19 09:12 Cepastat Lozenges PO 1 jodryn Q2H PRN Administration Sore Throat - Exam General Appearance: NAD Heart: RRR, no gallops Respiratory: no wheezes, no ronchi Gastrointestinal: non-tender, non-distended, normal bowel sounds Gastrointestinal - other findings: left nephrostomy drain Neurological: no new deficit Hosp A/P - Plan DVT proph w/SCDs Left renal abscess Acute pain due to above ERA on CKD 3/Hyponatremia (POA) Renal calculi HTN Anxiety HLD Hypothyroidism GERD PLAN: s/p PICC line IV Ceftriaxone Nephrostomy tube changed Hold Lasix Gentle IVF AM labs Cont Levothyroxine
[2019-07-11] MEDS ORDERED: Ondansetron ODT 4 MG TAB PO PRN (20:24)
[2019-07-11] MEDS ORDERED: Ondansetron PF 4 MG/2 ML Vial IVP PRN (20:24)
[2019-07-11] MEDS: Sodium Chloride 0.9% 1,000 ML IV SCH (21:37)
[2019-07-12] MEDS: Levothyroxine Sodium 125 MCG TAB PO SCH (05:43)
[2019-07-12 06:03] LABS: #Eosinphils 0.3 thou/uL (0.0-0.7); #Lymphocytes 1.8 thou/uL (1.20-3.40); #Monocytes 0.7 thou/uL (0.11-0.59); #Neutrophils 8.1 thou/uL (1.40-6.50); %Basophils 0.4 % (0.0-1.0); %Eosinophils 2.5 % (0.0-10.0); %Lymphocytes 16.3 % (21.0-51.0); %Monocytes 6.2 % (0.0-10.0); %Neutrophils 74.6 % (42.0-75.0); Hemoglobin 9.4 g/dL (12.0-16.0); Mean Corpuscular HGB CONC 34.1 g/dL (32.0-36.0); Mean Corpuscular Hemoglobin 28.4 pg (27.0-31.0); Mean Corpuscular Volume 83.4 fL (78.0-98.0); Mean Platelet Volume 6.5 fL (7.4-10.4); Platelet Count 470 thou/uL (130-400); RBC Distribution Width 13.3 % (11.5-14.5); Red Blood Cell (RBC) Count 3.32 mill/uL (4.20-5.40); White Blood Cell (WBC) Count 10.9 thou/uL (4.8-10.8)
[2019-07-12 06:31] LABS: Anion Gap 14 mmol/L (10-20); BUN (Urea Nitrogen) 16 mg/dL (7.0-18.7); Calc. Creatinine Clearance 40 mL/min (70-130); Calcium 10.8 mg/dL (7.8-10.44); Carbon Dioxide 21 mmol/L (22-29); Chloride 105 mmol/L (98-107); Estimated GFR-MDRD 29; Glucose 96 mg/dL (70-105); Potassium 4.3 mmol/L (3.5-5.1); Sodium 136 mmol/L (136-145)
[2019-07-12] MEDS: Liothyronine Sodium 5 MCG TAB PO SCH ×2 (08:15→20:22)
--- NOTE | 2019-07-12 11:32 | PRG ---
DATE OF SERVICE: 07/12/2019 This is a 48-year-old white female, whom I am seeing today in room [address] Martinez. Yesterday, she had larger percutaneous drain placed in her left flank for left renal abscess. She has been draining since, which is good. It is kind of a slightly bloody fluid. She is feeling better than she was when she came in. Her vital signs currently are stable. Pulse is up in the 90s, occasion up over 100. Her O2 saturation on room air is 99% right now and her blood pressure is fine. She is on Rocephin. Dr. Renteria did see her and feels like she just needs to be on Rocephin IV for a period of time for this. She is more comfortable now with a larger drain than easier to use a drainage bag. So, she will need to be in that today and tomorrow for the Rocephin. It seems that it is possible she could go home tomorrow, Sunday after her IV Rocephin as long as she set up to have another shot on Sunday. She will discuss this with the hospitalist. Her exam currently is good. Her abdomen is soft. She is really not tender on abdominal exam at all and is having some left flank pain, but better than it was. Headaches resolved also. So, she looks like she has improved from what she was when she came in. Job ID: [id number]
[2019-07-12] MEDS: cefTRIAXone\\ROCEPHIN 2 GM in Sodium Chloride 0.9% 100 ML IVPB SCH (12:14)
[2019-07-12] MEDS: Acetaminophen 325 MG TAB PO PRN (12:20)
--- NOTE | 2019-07-12 12:47 | PDOC.HOSPP ---
- Subjective Encounter Date: 07/12/19 Encounter Time: 08:45 Subjective: Patient seen and examined for Renal abscess. Pain controlled. No fever/chills. No new complaints. No overnight events - Objective Vital Signs & Weight: Vital Signs (12 hours) Temp Pulse Resp BP BP Pulse Ox 07/12/19 12:24 98.0 F 91 16 116/79 100 07/12/19 08:00 97.3 F L 90 16 116/79 100 Weight Weight 150 lb I&O: 07/11/19 07/12/19 07/13/19 06:59 06:59 06:59 Intake Total 720 Balance 720 Result Diagrams: 07/12/19 05:50 07/12/19 05:50 Hospitalist ROS - Review of Systems Respiratory: denies: cough, dry, shortness of breath, hemoptysis, SOB with excertion, pleuritic pain, sputum, wheezing, other Cardiovascular: denies: chest pain, palpitations, orthopnea, paroxysmal noc. dyspnea, edema, light headedness, other - Medication Medications: Active Medications Generic Name Dose Route Start Last Admin Trade Name Freq PRN Reason Stop Dose Admin Acetaminophen 650 mg 07/10/19 22:13 07/12/19 12:20 Tylenol PO 650 mg Q4H PRN Administration Headache/Fever/Mild Pain (1-3) Acetaminophen/Codeine Phosphate 1 tab 07/11/19 15:26 07/12/19 08:16 Tylenol #3 PO 1 tab Q4H PRN Administration Moderate Pain (4-6) Benzonatate 100 mg 07/10/19 22:15 07/11/19 09:11 Tessalon PO 100 mg TIDPRN PRN Administration Cough Ceftriaxone Sodium 2 gm/ 100 mls @ 200 mls/hr 07/11/19 13:00 07/12/19 12:14 Sodium Chloride IVPB 100 mls Q24HR KASSI Administration Sodium Chloride 1,000 mls @ 50 mls/hr 07/11/19 19:45 07/11/19 21:37 Normal Saline 0.9% IV 1,000 mls .Q20H KASSI Administration Levothyroxine Sodium 125 mcg 07/11/19 06:00 07/12/19 05:43 Synthroid PO 125 mcg 0600 KASSI Administration Liothyronine Sodium 10 mcg 07/11/19 09:00 07/12/19 08:15 Cytomel PO 10 mcg BID KASSI Administration Lorazepam 0.5 mg 07/11/19 15:02 07/11/19 21:42 Ativan PO 0.5 mg Q4H PRN Administration Anxiety Morphine Sulfate 2 mg 07/11/19 15:25 07/11/19 15:33 Morphine SLOW IVP 07/12/19 15:26 2 mg Q6H PRN Administration Pain Ondansetron HCl 4 mg 07/11/19 20:24 07/11/19 21:44 Zofran IVP 4 mg Q6H PRN Administration Nausea/Vomiting Sodium Chloride 10 ml 07/10/19 22:13 07/11/19 15:34 Flush - Normal Saline IVF 10 ml PRN PRN Administration Saline Flush Throat Lozenges 1 jordyn 07/11/19 00:25 07/11/19 09:12 Cepastat Lozenges PO 1 jordyn Q2H PRN Administration Sore Throat - Exam General Appearance: NAD Heart: RRR, no rubs Respiratory: no wheezes, no rales Gastrointestinal: non-tender, non-distended, normal bowel sounds Gastrointestinal - other findings: Nephrostomy cath - draining Psychiatric: normal affect, A&O x 3 Hosp A/P - Plan DVT proph w/SCDs Left renal abscess Acute pain due to above ERA on CKD 3/Metabolic acidosis Hyponatremia Hypercalcemia - improving Renal calculi HTN Anxiety HLD Hypothyroidism GERD s/p PICC line s/p Nephrostomy tube change PLAN: Cont IV Ceftriaxone Await outpt Atbx setup Cont IVF Hold Lasix Labs in 48 hr Cont other meds as above Await outpt Atbx setup
[2019-07-12] MEDS: Sodium Chloride 0.9% 1,000 ML IV SCH (15:45)
[2019-07-12] MEDS: Saccharomyces boulardii 250 MG CAP PO SCH (20:22)
[2019-07-13] MEDS: Levothyroxine Sodium 125 MCG TAB PO SCH (05:35)
[2019-07-13] MEDS: Acetaminophen 325 MG TAB PO PRN ×4 (05:48→21:58)
[2019-07-13] MEDS: Liothyronine Sodium 5 MCG TAB PO SCH ×2 (08:42→21:13)
--- NOTE | 2019-07-13 12:02 | PRG ---
DATE OF SERVICE: 07/13/2019 The patient is afebrile. I am seeing today up in room [address] Martinez. Vital signs are stable. She is afebrile. She has had her nephrostomy tube flushed, there has not been a lot of drainage, except when they flush it, there was some, probably just a fluid they used to flush it with. She is really feeling well. She took a shower. She feels much better and does not look like she will be able go home today as I do not think the outpatient antibiotics were yet set up, so she will be here at least one more day. Everything currently looks stable on her. She has no new lab work. Job ID: [id number]
[2019-07-13] MEDS: cefTRIAXone\\ROCEPHIN 2 GM in Sodium Chloride 0.9% 100 ML IVPB SCH (12:59)
[2019-07-13] MEDS ORDERED: Loratadine 10 MG TAB PO PRN (18:55)
[2019-07-13] MEDS: Saccharomyces boulardii 250 MG CAP PO SCH (21:13)
[2019-07-14] MEDS: Levothyroxine Sodium 125 MCG TAB PO SCH (05:44)
[2019-07-14] MEDS: Acetaminophen 325 MG TAB PO PRN ×2 (05:45→11:58)
[2019-07-14 06:24] LABS: #Eosinphils 0.3 thou/uL (0.0-0.7); #Lymphocytes 2.3 thou/uL (1.20-3.40); #Monocytes 0.7 thou/uL (0.11-0.59); #Neutrophils 5.7 thou/uL (1.40-6.50); %Basophils 0.5 % (0.0-1.0); %Eosinophils 3.3 % (0.0-10.0); %Lymphocytes 25.6 % (21.0-51.0); %Monocytes 7.2 % (0.0-10.0); %Neutrophils 63.3 % (42.0-75.0); Hemoglobin 9.8 g/dL (12.0-16.0); Mean Corpuscular HGB CONC 33.3 g/dL (32.0-36.0); Mean Corpuscular Hemoglobin 27.5 pg (27.0-31.0); Mean Corpuscular Volume 82.6 fL (78.0-98.0); Mean Platelet Volume 6.7 fL (7.4-10.4); Platelet Count 431 thou/uL (130-400); RBC Distribution Width 13.1 % (11.5-14.5); Red Blood Cell (RBC) Count 3.57 mill/uL (4.20-5.40)
[2019-07-14 07:12] LABS: Anion Gap 13 mmol/L (10-20); BUN (Urea Nitrogen) 17 mg/dL (7.0-18.7); Calc. Creatinine Clearance 44 mL/min (70-130); Carbon Dioxide 23 mmol/L (22-29); Chloride 104 mmol/L (98-107); Estimated GFR-MDRD 33; Potassium 4.2 mmol/L (3.5-5.1); Sodium 136 mmol/L (136-145)
[2019-07-14 07:13] LABS: Glucose 85 mg/dL (70-105)
--- NOTE | 2019-07-14 08:07 | PDOC.HOSPP ---
- Subjective Encounter Date: 07/13/19 Encounter Time: 18:00 Subjective: Patient seen and examined for Renal abscess. No fever or chills. Pain controlled. No new complaints. No overnight events - Objective Vital Signs & Weight: Weight Weight 150 lb I&O: 07/13/19 07/14/19 07/15/19 06:59 06:59 06:59 Intake Total 1590 490 Output Total 30 110 Balance 1560 380 Result Diagrams: 07/14/19 05:55 07/14/19 05:55 Hospitalist ROS - Review of Systems Respiratory: denies: cough, dry, shortness of breath, hemoptysis, SOB with excertion, pleuritic pain, sputum, wheezing, other Cardiovascular: denies: chest pain, palpitations, orthopnea, paroxysmal noc. dyspnea, edema, light headedness, other - Medication Medications: Active Medications Generic Name Dose Route Start Last Admin Trade Name Freq PRN Reason Stop Dose Admin Acetaminophen 650 mg 07/10/19 22:13 07/14/19 05:45 Tylenol PO 650 mg Q4H PRN Administration Headache/Fever/Mild Pain (1-3) Acetaminophen/Codeine Phosphate 1 tab 07/11/19 15:26 07/12/19 08:16 Tylenol #3 PO 1 tab Q4H PRN Administration Moderate Pain (4-6) Benzonatate 100 mg 07/10/19 22:15 07/11/19 09:11 Tessalon PO 100 mg TIDPRN PRN Administration Cough Ceftriaxone Sodium 2 gm/ 100 mls @ 200 mls/hr 07/11/19 13:00 07/13/19 12:59 Sodium Chloride IVPB 100 mls Q24HR KASSI Administration Levothyroxine Sodium 125 mcg 07/11/19 06:00 07/14/19 05:44 Synthroid PO 125 mcg 0600 KASSI Administration Liothyronine Sodium 10 mcg 07/11/19 09:00 07/13/19 21:13 Cytomel PO 10 mcg BID KASSI Administration Lorazepam 0.5 mg 07/11/19 15:02 07/11/19 21:42 Ativan PO 0.5 mg Q4H PRN Administration Anxiety Ondansetron HCl 4 mg 07/11/19 20:24 07/11/19 21:44 Zofran IVP 4 mg Q6H PRN Administration Nausea/Vomiting Saccharomyces Boulardii 250 mg 07/12/19 21:00 07/13/19 21:13 Florastor PO 250 mg HS KASSI Administration Sodium Chloride 10 ml 07/10/19 22:13 07/11/19 15:34 Flush - Normal Saline IVF 10 ml PRN PRN Administration Saline Flush Throat Lozenges 1 jordyn 07/11/19 00:25 07/11/19 09:12 Cepastat Lozenges PO 1 jordyn Q2H PRN Administration Sore Throat Tramadol HCl 50 mg 07/11/19 15:25 07/12/19 20:37 Ultram PO 50 mg Q4H PRN Administration Moderate Pain (4-6) - Exam General Appearance: NAD Eye: PERRL, anicteric sclera Neck: supple, no JVD Gastrointestinal: soft, non-tender Neurological: no focal deficits, no new deficit Psychiatric: normal affect, A&O x 3 Hosp A/P - Plan DVT proph w/SCDs Left renal abscess Acute pain due to above ERA on CKD 3/Metabolic acidosis - improving Hyponatremia Hypercalcemia - improving Renal calculi HTN Anxiety HLD Hypothyroidism GERD s/p PICC line s/p Nephrostomy tube change PLAN: Cont IV Ceftriaxone s/p PICC line Await outpt Atbx setup Cont other meds as above BMP in AM
[2019-07-14 08:15] VITALS: BP 127/81; TEMP 98.2
[2019-07-14] MEDS: Liothyronine Sodium 5 MCG TAB PO SCH (08:47)
[2019-07-14] MEDS ORDERED: cefTRIAXone\\ROCEPHIN 2 GM in Sodium Chloride 0.9% 100 ML IVPB SCH (11:00)
[2019-07-14] MEDS: cefTRIAXone\\ROCEPHIN 2 GM in Sodium Chloride 0.9% 100 ML IVPB SCH (11:55)
--- NOTE | 2019-07-14 16:38 | DIS ---
DATE OF ADMISSION: 07/10/2019 DATE OF DISCHARGE: 07/14/2019 DISCHARGE DISPOSITION: Home. FOLLOWUP: 1. Follow up with primary care physician, Dr. Milind Scott next week. 2. Follow up with Infectious Disease, Dr. Renteria as scheduled. 3. Follow up with Magdy Martinez as scheduled. DISCHARGE MEDICATIONS: The patient will continue ceftriaxone per Infectious Disease's recommendation. She was advised to change the Lasix and potassium chloride to as needed for now until the renal function improves. All other home medications were left unchanged. INPATIENT COOK CHEF: 1. Infectious Disease, Dr. Renteria. 2. Urology, Dr. Martinez. DIAGNOSTIC TESTS: Renal ultrasound on July 10, 2019, showed findings concerning for intraparenchymal abscess of the left kidney. INPATIENT PROCEDURES: 1. On July 11, 2019, the patient underwent upsizing of the percutaneous drain of the left renal abscess. 2. On July 11, 2019, the patient underwent a PICC line placement. BRIEF HOSPITAL COURSE: The patient is a 48-year-old female with recent diagnosis of left renal abscess with recent nephrostomy tube placement, presented to the emergency room due to increasing left flank pain. The patient was on Levaquin on admission. She underwent CT-guided upsizing of the nephrostomy tube. Her blood culture and urine culture remained negative. The patient was evaluated by Infectious Disease, who recommended to continue ceftriaxone 2 g daily for protracted period of time. Exact duration of antibiotics will be determined by Infectious Disease. The antibiotics will be arranged by Dr. Renteria' office. The patient was also found to have acute kidney injury with creatinine of 2.49 on admission. After IV hydration, the creatinine improved to 1.66. Due to acute kidney injury, lisinopril and potassium chloride were held. SIGNIFICANT LABORATORY DATA: WBC on admission 19.3, at discharge 9.0 without any left shift. Sodium 132, at discharge 136. Calcium on admission was 11.6, at discharge is 11. FINAL DIAGNOSES: 1. Left-sided flank pain secondary to left renal abscess status post upsizing of the nephrostomy drain. 2. Acute kidney injury on chronic kidney disease stage 3 with metabolic acidosis, improving. 3. Hyponatremia. 4. Hypercalcemia. Primary care physician advised to follow. 5. Nonobstructing renal calculi. 6. Hypertension. 7. Anxiety. 8. Hyperlipidemia. 9. Hypothyroidism. 10. Gastroesophageal reflux disease. 11. The patient was seen and examined on the day of discharge. 12. Chronic anemia of unclear etiology. Primary care physician advised to follow. Job ID: [id number]
== END 2019-07-14 14:40 | disposition home or self-care (01) | DRG 690 ==
LOC: ERS 11:52 → OBSVTOIN 17:39 → ERHOLD 17:39 → T4-B 20:40
PROVIDERS: ADMIT Emergency Medicine; ATTEND Emergency Medicine
PROC: 02HV33Z Insertion of Infusion Device into Superior Vena Cava, Percutaneous Approach (ICD-10-PCS; principal; 2019-07-11)
PROC: B548ZZA Ultrasonography of Superior Vena Cava, Guidance (ICD-10-PCS; 2019-07-11)
PROC: 0T9430Z Drainage of Left Kidney Pelvis with Drainage Device, Percutaneous Approach (ICD-10-PCS; 2019-07-11)
DX: N15.1 Renal and perinephric abscess (principal); E87.2 Acidosis; E87.1 Hypo-osmolality and hyponatremia; N17.9 Acute kidney failure, unspecified; N18.3 Chronic kidney disease, stage 3 (moderate); E83.52 Hypercalcemia; I12.9 Hypertensive chronic kidney disease with stage 1 through stage 4 chronic kidney disease, or unspecified chronic kidney disease; F41.9 Anxiety disorder, unspecified; E03.9 Hypothyroidism, unspecified; E78.5 Hyperlipidemia, unspecified; K21.9 Gastro-esophageal reflux disease without esophagitis; K58.9 Irritable bowel syndrome, unspecified; G47.00 Insomnia, unspecified; E87.6 Hypokalemia; G89.29 Other chronic pain; D64.9 Anemia, unspecified; F32.9 Major depressive disorder, single episode, unspecified; Z88.1 Allergy status to other antibiotic agents; Z88.8 Allergy status to other drugs, medicaments and biological substances
CPT/HCPCS: 36415; 36569; 50020; 71046; 76770; 77002; 80048; 80053; 81003; 81015; 83605; 83690; 83735; 83880; 84443; 85025; 87040; 87086; 96361; 96365; 96367; C1751; J0692; J0696; J1644; J2250; J2270; J2405; J3010; J3370; J3490

== ENCOUNTER 2019-07-30 14:05 | Outpatient (CLI) | payer BC ==
--- NOTE | 2019-07-30 14:55 | ULT ---
Renal sonogram HISTORY: Left renal abscess. COMPARISON: 07/10/2019. FINDINGS: Right kidney is 10.6 cm. Normal appearance. No hydronephrosis or mass. Urinary bladder is u nremarkable. The left kidney is 9.9 cm length on the current study. No hydronephrosis. At the inferior pole, a lob ular heterogeneous slightly hypoechoic abnormality consistent with abscess contains an echogenic drain. It measures up to 5.7 cm length by 3.8 cm x 3.9 cm. No internal or adjacent fluid is evident.. IMPRESSION : Slight interval decrease in size of the complex abscess lesion at the inferior pole of the left kidne y compared to the 07/10/2019 study. No significant remaining fluid is apparent. No new abnormalities.
== END 2019-07-30 14:06 | disposition home or self-care (01) ==
LOC: BICULT 14:05
PROVIDERS: ATTEND Urology
DX: N15.1 Renal and perinephric abscess (principal)
CPT/HCPCS: 76770

== ENCOUNTER 2019-08-11 08:48 | Outpatient (CLI) | payer BC ==
--- NOTE | 2019-08-11 09:18 | ULT ---
Exam: Bilateral renal ultrasound HISTORY: Follow-up left renal abscess. Patient has a parenchymal drain. COMPARISON: 07/30/2019 FINDINGS: Right kidney: Normal cortical echotexture. Stable right renal cortical thinning. No hydronephrosis. Right kidney measurements: 3.5 x 9.1 x 3.8 cm. Left kidney: Redemonstration of a complex echotexture focus in the midpole the left kidney measuring 4.3 x 4.2 x 4.8 cm. Portion of the drainage catheter appears to be in the complex echotexture focus. Previously, this focus measured 5.7 x 3.8 x 3.9 cm. No hydronephrosis.. There is left renal co rtical thinning. Left kidney measurements 6.0 x 4.9 x 9.0 cm. Urinary bladder: Normal mucosa. IMPRESSION: 1. No hydronephrosis 2. Redemonstration of complex echotexture focus in the midpole left kidney, compatible with known abs cess. Portion of the drainage catheter appears to be present in the collection.
== END 2019-08-11 08:49 | disposition home or self-care (01) ==
LOC: BICULT 08:48
PROVIDERS: ATTEND Urology
DX: N20.0 Calculus of kidney (principal); R93.422 Abnormal radiologic findings on diagnostic imaging of left kidney
CPT/HCPCS: 76770

== ENCOUNTER 2019-09-01 10:48 | Outpatient (CLI) | payer BC ==
--- NOTE | 2019-09-01 12:55 | ULT ---
BILATERAL RENAL ULTRASOUND: Date: 09/01/2019 COMPARISON: 08/11/2019. HISTORY: Renal abscess. TECHNIQUE: Multiplanar Williamson scale and color Doppler images were obtained in a renal ultrasound. FINDINGS: In the superior pole of the left kidney, there is a hypoechoic to anechoic region measuring 3.6 cm in greatest dimension. There appears to be a catheter within this fluid collection. There is no evidenc e of hydronephrosis. The right kidney is normal in echogenicity without focal lesions. The kidneys me asures 9.9 and 8.5 cm in length on the right and left, respectively. Limited visualization of the urinary bladder is unremarkable. IMPRESSION: There is a persistent fluid collection in the right kidney. This is more anechoic than the prior exam ination and this may represent a more benign nonpurulent fluid collection. POS: EAA
== END 2019-09-01 10:49 | disposition home or self-care (01) ==
LOC: BICULT 10:48
PROVIDERS: ATTEND Urology
DX: N15.1 Renal and perinephric abscess (principal)
CPT/HCPCS: 76770

== ENCOUNTER 2019-10-10 13:06 | Outpatient (CLI) | payer BC ==
--- NOTE | 2019-10-10 16:35 | ULT ---
RENAL ULTRASOUND: History: Renal abscess Comparison: 09-01-2019 Technique: Multiplanar grayscale and color doppler images were obtained in a renal ultrasound. FINDINGS: There is a fluid collection long the cortex of the left kidney. This is slightly more hypoechoic than it was on the most recent examination and measures approximately 4.7 cm in greatest dimension. This is larger than it was on the prior examination. The previously seen catheter within the fluid collect ion has been removed. No hydronephrosis is seen in either kidney. There is an echogenic 3 mm focus in the right kidney which may represent a nonobstructing calcification. The kidneys measure 10.3 and 8. 4 cm in length on the right and left, respectively. Limited visualization of the urinary bladder is unremarkable. IMPRESSION: 1. There is slight enlargement of the left renal fluid collection, but this fluid collection appears more anechoic suggesting that its continuing to resolve and is more likely a benign rather than a mor e aggressive process. Correlate with white blood cell count and fever. 2. Nonobstructing right renal calcification. POS: EAA
== END 2019-10-10 13:07 | disposition home or self-care (01) ==
LOC: BICULT 13:06
PROVIDERS: ATTEND Urology
DX: N15.1 Renal and perinephric abscess (principal); N28.89 Other specified disorders of kidney and ureter
CPT/HCPCS: 76770

== ENCOUNTER 2019-11-12 15:30 | Outpatient (CLI) | payer BC ==
--- NOTE | 2019-11-12 15:55 | ULT ---
Renal sonogram HISTORY: Abscess. COMPARISON: 10/10/2019. FINDINGS: On today's exam, right kidney measures up to 10.2 cm. No hydronephrosis. Tiny nonobstructin g calculus is apparent at the superior pole. Urinary bladder is unremarkable. Left kidney measures up to 8.4 cm. Heterogeneous partially cystic hypoechoic lesion along the lateral cortex is now 3.3 cm x 3.1 cm x 2.6 cm greatest diameters (previously 4.7 cm). Internal contents appear to be more liquid than on the prior study. No hydronephrosis. IMPRESSION : Interval evolution of the left renal abscess, decreasing in size and now with a more liquid appearanc e.
== END 2019-11-12 15:31 | disposition home or self-care (01) ==
LOC: BICULT 15:30
PROVIDERS: ATTEND Urology
DX: N15.1 Renal and perinephric abscess (principal)
CPT/HCPCS: 76770